=== PATIENT | male | born 1950 | race Caucasian/White ===

== ENCOUNTER → 2016-03-09 | Outpatient (CLI) | payer OTHER ==
[2015-06-27 12:37] VITALS: BP 106/72
[~2016-03-09] MED LIST: ACET325T9 PO; ASPI-482 PO; DOCU60SY6 PO; HYDR-2679 PO; LOSA25TA4 PO; MELO7.5T5 PO; METH-38 PO; MULT-208 PO; NORT25CA PO; OMEG300C PO; OMEP20CA5 PO; TRAM50TA PO
--- NOTE | 2016-03-10 01:07 | PAIN ---
DATE OF SERVICE: 03/09/2016 PROGRESS NOTE DIAGNOSES: Lumbar radiculopathy with lumbar degenerative disk disease and lumbar spinal stenosis. HISTORY OF PRESENT ILLNESS: The patient is a 65-year-old male who returns for followup status post caudal approach epidural steroid injection x 2, most recently on 01/07/2016. The patient reports he had near 100% improvement for about 2 months after the injection. The patient reports the pain is now beginning to return to a moderate extend in the low back and left lower extremity. The patient reports across the low back, into the left leg on the lateral aspect as well as the medial aspect of the thigh, posterior thigh and into the lower leg, some on the right side as well, in the posterior thigh, but mostly on the left side now. 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 The patient reports his pain as a 5-6 on a scale of 10. No new motor or sensory deficits, no new bowel or bladder incontinence, but still significant radiating pain into the lower extremities, again worse on the left side. PHYSICAL EXAMINATION: VITAL SIGNS: The patient's blood pressure is 138/82, pulse 81, respirations 18, temperature is 98.2 degrees Fahrenheit, and weight is 229 pounds. GENERAL: The patient is awake, alert, oriented, appropriate, very pleasant demeanor. HEENT: Shows normocephalic, atraumatic. Extraocular movements are intact and symmetrical. Oral cavity shows mucous membranes are moist and pink. Dentition is intact. NECK: Shows anterior throat supple without palpable lymphadenopathy noted. Swallow reflex is symmetrical. CHEST: Shows normal on inspection. Breath sounds are clear to auscultation bilaterally. HEART: Shows S1 and S2 clear. ABDOMEN: Soft, obese, nontender, and nondistended. No palpable organomegaly is noted. No rebound or guarding demonstrated. BACK: Shows spine grossly in midline. Normal appearing thoracic kyphosis and mild flattening of lumbar lordotic curvature. Well healed surgical scar is noted in the lumbar distribution. Lumbar paraspinous musculature shows symmetrical in appearance and inspection and with palpation is tender with palpation bilaterally in the middle and lower lumbar distribution, more in the left than the right, but appears roughly symmetrical. Once again no evidence of atrophy, hypertrophy, no trigger points, no radiation of pain, no tenderness over the sacrum or the sacroiliac regions with palpation. EXTREMITIES: Lower extremities show deep tendon reflexes at 1+ in the patellar and tendo calcaneus tendons, are equal. Motor exam is strong with dorsiflexion and extension and 5/5 on the right and 4/5 on the left. Quadriceps and hamstring flexion, however, is 5/5 and equal bilaterally. Peripheral pulses are 1+ posterior tibial and dorsalis pedis pulses. No peripheral edema is noted. No clubbing, no cyanosis. Straight leg raise noted to be positive on the left side at about 35-40 degrees with decreased pain with knee flexion, right side is negative. PLAN: Options were discussed with the patient. The patient's old chart was reviewed as his current medication regimen and updated. Current review of systems updated today as well. We will preauthorize the patient for caudal epidural steroid injections, a third in the series with fluoroscopic guidance. The patient would like to wait for preauthorization with his insurance provider. We will submit this first and wait approval. The patient will continue to do walking and stretching exercises as he has been doing at home and at work and continue this until returned in approximately one week for caudal approach epidural steroid injection at that time. DB MCNEAL MD DR: NAJMA/la JOB#: [id number] / [id number]
== END | disposition home or self-care (01) ==
LOC: PNCL 13:57
PROVIDERS: ATTEND Anesthesiology
DX: M51.16 Intervertebral disc disorders with radiculopathy, lumbar region (principal); M48.06 Spinal stenosis, lumbar region
CPT/HCPCS: G0463

== ENCOUNTER → 2016-03-23 | Outpatient (CLI) | payer OTHER ==
[2015-06-27 12:37] VITALS: BP 106/72
[~2016-03-23] MED LIST changes: +IOHEXOL 180 MG/ML 10 ML VIAL. ONE; +methylPREDNISolone ACETATE 40 MG/ML VIAL. ONE; +methylPREDNISolone ACETATE 80 MG/ML VIAL. ONE
--- NOTE | 2016-03-24 08:07 | PAIN ---
DATE OF SERVICE: 03/23/2016 DIAGNOSES: Lumbar radiculopathy with lumbar degenerative disk disease, and lumbar spinal stenosis. HISTORY OF PRESENT ILLNESS: The patient is a 65-year-old male, who returns for followup status post office visit and preauthorization for a third caudal epidural steroid injection. The patient has obtained this now and returns wishing to proceed. The patient reports still significant pain in the low back and left lower extremity as it was previously; stabbing, aching in the left quad mostly anteriorly and laterally, also posteriorly, and also some pain in the left ankle. The patient reports it as ranging from 0 to 8 on a scale of 10. It is currently at 2 on a scale of 10 today, but worse with standing, walking, changing positions, and climbing in and out of a vehicle. The patient reports no new motor or sensory deficits, no new bowel or bladder incontinence or other complaints. PHYSICAL EXAMINATION: VITAL SIGNS: The patient's blood pressure is 159/91, pulse 90, respirations 18, temperature 97.6 degrees Fahrenheit, weight is 231 pounds. GENERAL: The patient is awake, alert, oriented, appropriate, has a very pleasant demeanor. HEENT: Head shows normocephalic, atraumatic. Extraocular movements are intact and symmetrical. Oral cavity shows mucous membranes moist and pink. Dentition is intact. NECK: Shows anterior throat supple without palpable lymphadenopathy noted. Swallow reflex is symmetrical. Neck shows full rotational motion of cervical spine without tenderness or difficulty. CHEST: Shows normal on inspection. Breath sounds are clear to auscultation bilaterally. HEART: Shows S1 and S2 clear. ABDOMEN: Soft, obese, nontender, nondistended. No palpable organomegaly is noted. No rebound or guarding demonstrated. BACK: Shows spine grossly midline. Lumbar paraspinous muscle shows some moderate tenderness with palpation on the bilateral paraspinous muscles, but only diffusely without atrophy or hypertrophy, without radiation of pain. No asymmetry. Well-healed surgical scars again noted on inspection. The patient does show good rotation and motion of the lumbar spine both laterally, greater than 10 degrees right and left, as well as extension greater than 10 degrees, forward flexion 45 degrees without difficulty. EXTREMITIES: The patient's lower extremities showed deep tendon reflexes 1+ in the patellar and tendo calcaneus tendons are equal. Motor exam is strong with approximately 4 on a scale of 5 with left dorsiflexion, extension, and 5/5 on the right. Peripheral pulses are 1+ posterior tibial and dorsalis pedis pulses. No peripheral edema is noted in the lower extremities bilaterally. PLAN: Options were discussed with the patient. We will proceed with a third caudal-approach epidural steroid injection today with fluoroscopic guidance. Risks were again discussed including, but not limited to, bleeding, infection, possibility of epidural hematoma and subsequent neurologic compromise, dural puncture, headaches, spinal cord and/or nerve damage, side effects of steroid medication, and poor results regarding pain control. The patient understands and wished to proceed. The patient will return to the clinic in approximately 2 weeks for followup. He was counseled on return appointment, activity level, and side effects to be aware of. DIAGNOSES: Lumbar radiculopathy with lumbar degenerative disk disease and lumbar spinal stenosis. PROCEDURE: Caudal-approach epidural steroid injection using C-arm fluoroscopic-guided under sterile prep and drape with local anesthesia. MEDICATIONS AND INJECTIONS: 120 mg Depo-Medrol plus 10 mL of preservative-free normal saline and 2 mL of Isovue contrast. CONDITION AT DISCHARGE: Stable. The patient tolerated the procedure well, had no complications. DB MCNEAL MD DR: NAJMA/la JOB#: [id number] / [id number]
== END ==
LOC: PNCL 13:33
PROVIDERS: ATTEND Anesthesiology
DX: M51.16 Intervertebral disc disorders with radiculopathy, lumbar region (principal); M48.06 Spinal stenosis, lumbar region; K21.9 Gastro-esophageal reflux disease without esophagitis; M19.90 Unspecified osteoarthritis, unspecified site; I10 Essential (primary) hypertension; F32.9 Major depressive disorder, single episode, unspecified; Z72.89 Other problems related to lifestyle
CPT/HCPCS: 62323; J1030; J1040

== ENCOUNTER 2019-10-15 16:17 | Emergency (ER) | payer MEDICARE, OTHER ==
[~2019-10-15] VITALS: Ht 152.4 cm; Wt 102.7 kg
[~2019-10-15 16:17] MED LIST changes: -IOHEXOL 180 MG/ML 10 ML VIAL. ONE; -LOSA25TA4 PO; +LOSA25TA54 PO; -methylPREDNISolone ACETATE 40 MG/ML VIAL. ONE; -methylPREDNISolone ACETATE 80 MG/ML VIAL. ONE
--- NOTE | 2019-10-15 17:10 | PHYS DOC ---
Past Medical History Past Medical History: Arthritis, Depression, GERD, Hypertension Additional Past Medical Histor: NEUROPATHY Past Surgical History: Other Additional Past Surgical Histo: LUMBAR SURGERY Smoking Status: Never Smoker Alcohol Use: Sober Additional Information: PT QUIT DRINKING BUD LIGHT AND 1/2 GALLON OF ANNITA ROBBINS MONTHLY ABOUT 30 DAYS AGO. General Adult EDM: Chief Complaint: CONSTIPATION HPI: HPI: Patient is a 69 year old male who presents with patient states for the last 2 days he has not had a bowel movement. He states today he felt like he had to have a bowel movement and was sitting on the toilet bearing down to get stool out but he cannot have any stool come out. He states that he began having some rectal pain and when he wiped there was a little bit of blood on the toilet paper. He states that he had a colonoscopy a year ago and he had hemorrhoids. He states now he is just having rectal pain. Abdomen is soft and nontender. Patient rates his rectal pain at a 7 out of 10. Patient states up to about 30 days ago he was a heavy drinker with Annita Robbins and [place] [employer] beer. He states that he knows that his liver enzymes are elevated and his primary care doctor knows this also. Patient also has a history of a lumbar surgery, arthritis, hypertension, GERD. Review of Systems: Review of Systems: Constitutional: Denies fever or chills. [] Eyes: Denies change in visual acuity. [] HENT: Denies nasal congestion or sore throat. [] Respiratory: Denies cough or shortness of breath. [] Cardiovascular: Denies chest pain or edema. [] GI: Denies abdominal pain, nausea, vomiting, bloody stools or diarrhea. [] : Denies dysuria. [] Musculoskeletal: Denies back pain or joint pain. [] Integument: Denies rash. [] Neurologic: Denies headache, focal weakness or sensory changes. [] Endocrine: Denies polyuria or polydipsia. [] Lymphatic: Denies swollen glands. [] Psychiatric: Denies depression or anxiety. [] Heart Score: Risk Factors: Risk Factors: DM, Current or recent (<one month) smoker, HTN, HLP, family history of CAD, obesity. Risk Scores: Score 0 - 3: 2.5% MACE over next 6 weeks - Discharge Home Score 4 - 6: 20.3% MACE over next 6 weeks - Admit for Clinical Observation Score 7 - 10: 72.7% MACE over next 6 weeks - Early Invasive Strategies Allergies: Allergies: Allergies Coded Allergies Type Severity Reaction Last Updated Verified Penicillins Allergy Intermediate Rash 06/27/15 Yes Sulfa (Sulfonamide Antibiotics) Allergy Intermediate Rash 06/27/15 Yes shrimp Allergy Intermediate Rash 06/27/15 Yes nut - unspecified Allergy Unknown rash with Pecans 06/27/15 Yes Physical Exam: PE: Constitutional: Well developed, well nourished, no acute distress, non-toxic appearance. [] HENT: Normocephalic, atraumatic, bilateral external ears normal, oropharynx moist, no oral exudates, nose normal. [] Eyes: PERRLA, EOMI, conjunctiva normal, no discharge. [] Neck: Normal range of motion, no tenderness, supple, no stridor. [] Cardiovascular:Heart rate regular rhythm, no murmur [] Lungs & Thorax: Bilateral breath sounds clear to auscultation [] Abdomen: Bowel sounds normal, soft, no tenderness, no masses, no pulsatile masses. Hard stool in rectal vault. Anal fissure at 5:00 on rectum. [] Skin: Warm, dry, no erythema, no rash. [] Back: No tenderness, no CVA tenderness. [] Extremities: No tenderness, no cyanosis, no clubbing, ROM intact, no edema. [] Neurologic: Alert and oriented X 3, normal motor function, normal sensory function, no focal deficits noted. [] Psychologic: Affect normal, judgement normal, mood normal. [] Current Patient Data: Vital Signs: Vital Signs Date Time Temp Pulse Resp B/P (MAP) Pulse Ox O2 Delivery O2 Flow Rate FiO2 10/15/19 16:31 98.2 85 16 153/81 (105) 97 Room Air 98.2 EKG: EKG: [] Radiology/Procedures: Radiology/Procedures: [] Impression: [facility] [address] [place] [address] IMAGING REPORT Signed PATIENT: LOREN COURTNEYOUNT: [id number] : 1950 LOCATION: ER AGE: 69 SEX: M EXAM STATUS: PRE ER ORD. PHYSICIAN: CHRISTINA BUITRAGO APRN REASON: CONSTIPATION, ABD PAIN PROCEDURE: ACUTE ABDOMEN SERIES ACUTE ABDOMEN SERIES Indication: Constipation, abdominal pain Date of service:10/15/2019 .Comparison: None available Procedure: PA chest and upright and supine abdomen views are obtained. Findings: Chest: Cardiac size and pulmonary vessels are normal. Pneumonia, pneumothorax or pleural effusion are not present. Bones are essentially normal Abdomen: No evidence of free air is present. Gas pattern is normal . Spondylotic changes involving the lumbar spine Impression: Normal Chest . Normal abdomen without obstruction, ileus or free air . If indicated, CT scan of the abdomen would be useful for further evaluation. Electronically signed by: Cristy Alaniz MD (10/15/2019 5:53 PM) [facility] DICTATED and SIGNED BY: CRISTY ALANIZ MD DATE: 10/15/19 1753 [facility] [address] [place], [place] [id number] IMAGING REPORT Signed PATIENT: LOREN COURTNEYOUNT: [id number] : 1950 LOCATION: ER AGE: 69 SEX: M EXAM STATUS: REG ER ORD. PHYSICIAN: CHRISTINA BUITRAGO APRN REASON: positive fecal occult stool OMNI 300, 60 ML IV PROCEDURE: CT ABD PELV W/ IV CONTRST ONLY Exam: CT of abdomen and pelvis with contrast INDICATION: Blood in stool. TECHNIQUE: Sequential axial images through the abdomen and pelvis obtained following the administration of 60 mL of Omni 300 IV contrast. Sagittal and coronal reformatted images were reconstructed from the axial data and reviewed. Comparisons: None FINDINGS: Heart size is normal. No pericardial visualized lung bases are clear. No pleural effusion Liver, spleen, pancreas, gallbladder and adrenals are unremarkable. No perinephric inflammation or hydronephrosis. No renal or ureteral calculi are identified. Bladder is distended and appears thin-walled. Prostate is not enlarged. Mild wall thickening at the sigmoid colon. There is a moderate amount stool noted throughout the colon. Appendix is normal. No free intra-abdominal air or fluid. No obstruction. Abdominal aorta has a normal course and caliber. Abdominal vasculature is patent. No enlarged abdominal lymph nodes are identified. No suspicious osseous lesions or acute fractures. IMPRESSION: Mild wall thickening at the sigmoid colon, may relate to focal colitis. Colonoscopy posttreatment to ensure no underlying lesion is recommended. Exposure: One or more of the following in the visualized dose reduction techniques were utilized for this examination: 1. Automated exposure control 2. Adjustment of the MA and/or KV according to patient size 3. Use of iterative of reconstructive technique Electronically signed by: Karen Costa MD (10/15/2019 7:41 PM) [id number] DICTATED and SIGNED BY: KAREN COSTA MD DATE: 10/15/191940 Course & Med Decision Making: Course & Med Decision Making Pertinent Labs and Imaging studies reviewed. (See chart for details) A rectal exam is done and there are no hemorrhoids seen but it looks to have a fissure at approximately 5:00 on the rectum. There is no masses felt in the rectal vault. There is a large hard ball of stool that was felt at the tip of my finger but I cannot reach it to disimpact. Fecal occult stool sent. Alert and oriented x4. Ambulatory with a steady gait. Speaks in full clear sentences. Skin pink warm and dry. Patient denies any timmy blood or filling the toilet with water. He only saw it when he wiped on the toilet paper. Hemodynamically stable. Ct shows possible colitis. Patient had a large bowel movement after the enema was given. He states he is feeling much better. There was no blood in the stool. Patient continues to deny any abdominal pain, nausea, or vomiting. Patient is stable and in no distress. [] Dragon Disclaimer: Dragon Disclaimer: This electronic medical record was generated, in whole or in part, using a voice recognition dictation system. Departure Departure Impression: Primary Impression: Colitis Additional Impression: Constipation Qualified Codes: K59.00 - Constipation, unspecified Disposition: HOME, SELF-CARE Condition: STABLE Referrals: KARLA DALTON MD (PCP) MORIS GIBSON MD Patient Instructions: Colitis, Constipation, Adult Additional Instructions: Follow up with primary care provider and GI doctor referred you to. Drink plenty of fluids. Take medications as prescribed and with food. If your symptoms worsen return to the emergency room. Scripts Ondansetron (ONDANSETRON ODT) 4 Mg Tab.rapdis 1 TAB PO PRN Q6-8HRS, #16 TAB Prov: CHRISTINA BUITRAGO APRN 10/15/19 Ciprofloxacin Hcl (CIPRO) 500 Mg Tablet 1 TAB PO BID for 7 Days, #14 TAB 0 Refills Prov: CHRISTINA BUITRAGO APRN 10/15/19 Metronidazole (FLAGYL) 500 Mg Tablet 1 TAB PO BID, #14 TAB Prov: CHRISTINA BUITRAGO APRN 10/15/19 Justicifation of Admission Dx: Justifications for Admission: Justification of Admission Dx: N/A CHRISTINA BUITRAGO APRN Oct 15, 2019 17:10
[2019-10-15 17:15] LABS: FECAL OB PT POSITIVE (NEG)
[2019-10-15 17:53] LABS: BASO % 1 % (0-3); EOS # 0.2 x10^3/uL (0.0-0.7); EOS % 3 % (0-3); HEMOGLOBIN 12.8 g/dL (13.0-17.5); LYMPH # 1.7 x10^3/uL (1.0-4.8); LYMPH % 27 % (24-48); MEAN CORPUSCULAR HEMOGLOBIN 31 pg (25-35); MEAN CORPUSCULAR HGB CONC 34 g/dL (31-37); MEAN CORPUSCULAR VOLUME 93 fL (79-100); MONO # 0.9 x10^3/uL (0.0-1.1); MONO % 15 % (0-9); NEUT # 3.4 x10^3/uL (1.8-7.7); NEUT % 54 % (31-73); PLATELET COUNT 257 x10^3/uL (140-400); RED CELL DISTRIBUTION WIDTH 12.7 % (11.5-14.5); WHITE BLOOD COUNT 6.2 x10^3/uL (4.0-11.0)
--- NOTE | 2019-10-15 17:55 | RAD ---
ACUTE ABDOMEN SERIES Indication: Constipation, abdominal pain Date of service:10/15/2019 .Comparison: None available Procedure: PA chest and upright and supine abdomen views are obtained. Findings: Chest: Cardiac size and pulmonary vessels are normal. Pneumonia, pneumothorax or pleural effusion are not present. Bones are essentially normal Abdomen: No evidence of free air is present. Gas pattern is normal . Spondylotic changes involving the lumbar spine Impression: Normal Chest . Normal abdomen without obstruction, ileus or free air . If indicated, CT scan of the abdomen would be useful for further evaluation. Electronically signed by: Cristy Alaniz MD (10/15/2019 5:53 PM) [facility]
[2019-10-15 18:03] LABS: CALCIUM 8.4 mg/dL (8.5-10.1); CREATININE 1.3 mg/dL (0.7-1.3); GFR 54.6; POTASSIUM 4.4 mmol/L (3.5-5.1)
[2019-10-15] MEDS ORDERED: SODIUM PHOSPHATES 19/7GM 133 ML ENEMA. PR ONE (18:15)
[2019-10-15 18:18] LABS: ALBUMIN 3.3 g/dL (3.4-5.0); ALBUMIN/GLOBULIN RATIO 0.9 (1.0-1.7); TOTAL BILIRUBIN 0.2 mg/dL (0.2-1.0)
[2019-10-15] MEDS ORDERED: IV NORMAL SALINE 1000ML BAG 1,000 ML IV ONE (18:45)
[2019-10-15] MEDS ORDERED: IOHEXOL 300 MG/ML 100ML VIAL. IV ONE (18:45)
[2019-10-15] MEDS ORDERED: CONTRAST GIVEN. MC PRN (19:00)
[2019-10-15] MEDS ORDERED: ONDANSETRON PF 4 MG/2 ML VIAL. IVP ONE (19:30)
--- NOTE | 2019-10-15 19:43 | RAD ---
Exam: CT of abdomen and pelvis with contrast INDICATION: Blood in stool. TECHNIQUE: Sequential axial images through the abdomen and pelvis obtained following the administration of 60 mL of Omni 300 IV contrast. Sagittal and coronal reformatted images were reconstructed from the axial data and reviewed. Comparisons: None FINDINGS: Heart size is normal. No pericardial visualized lung bases are clear. No pleural effusion Liver, spleen, pancreas, gallbladder and adrenals are unremarkable. No perinephric inflammation or hydronephrosis. No renal or ureteral calculi are identified. Bladder is distended and appears thin-walled. Prostate is not enlarged. Mild wall thickening at the sigmoid colon. There is a moderate amount stool noted throughout the colon. Appendix is normal. No free intra-abdominal air or fluid. No obstruction. Abdominal aorta has a normal course and caliber. Abdominal vasculature is patent. No enlarged abdominal lymph nodes are identified. No suspicious osseous lesions or acute fractures. IMPRESSION: Mild wall thickening at the sigmoid colon, may relate to focal colitis. Colonoscopy posttreatment to ensure no underlying lesion is recommended. Exposure: One or more of the following in the visualized dose reduction techniques were utilized for this examination: 1. Automated exposure control 2. Adjustment of the MA and/or KV according to patient size 3. Use of iterative of reconstructive technique Electronically signed by: Karen Amaya MD (10/15/2019 7:41 PM) [id number]
[2019-10-15] MEDS ORDERED: CIPR500T94 PO (20:26)
[2019-10-15] MEDS ORDERED: METR500T PO (20:26)
[2019-10-15] MEDS ORDERED: ONDA4TAB12 PO (20:26)
[2019-10-15 20:30] VITALS: BP 136/64
== END 2019-10-15 20:35 | disposition home or self-care (01) ==
LOC: ER 16:17
DX: K52.9 Noninfective gastroenteritis and colitis, unspecified (principal); K59.00 Constipation, unspecified; M19.90 Unspecified osteoarthritis, unspecified site; K21.9 Gastro-esophageal reflux disease without esophagitis; F32.9 Major depressive disorder, single episode, unspecified; I10 Essential (primary) hypertension; Z98.890 Other specified postprocedural states; Z88.0 Allergy status to penicillin; Z88.2 Allergy status to sulfonamides; Z91.018 Allergy to other foods; Z91.013 Allergy to seafood
CPT/HCPCS: 36415; 74022; 74177; 80053; 82274; 83690; 85025; 96361; 96374; 99285; G0480; J2405; J7030; Q9967

== ENCOUNTER → 2020-02-02 | Outpatient (CLI) | payer MEDICARE ==
[~2020-02-02] MED LIST changes: +ATOR40TA59 PO; +CIPR500T94 PO; +CITA20TA6 PO; +GABA600T7 PO; +HYDR12.58 PO; +IBUP200T77 PO; +MELO15TA23 PO; +METR500T PO; +ONDA4TAB12 PO
== END ==
LOC: LAB 13:25
PROVIDERS: ATTEND Surgery
DX: Z01.812 Encounter for preprocedural laboratory examination (principal); Z20.828 Contact with and (suspected) exposure to other viral communicable diseases
CPT/HCPCS: U0003

== ENCOUNTER → 2020-02-06 | Day surgery (SDC) | payer MEDICARE ==
[~2020-02-06] MED LIST changes: +LIDOCAINE 1%/EPI 1:100,000 20 ML VIAL. INJ ONE
--- NOTE | 2020-02-06 13:16 | PDOC1 ---
History and Physical Date of Admission Date of Admission DATE: 02/06/20 TIME: 13:14 Identification/Chief Complaint Chief Complaint Left elbow mass Source Source: Chart review, Patient History of Present Illness History of Present Illness 69-year-old male with complaints of a skin lesion on his left elbow is been present for a number years times it is painful or sore Past Medical History Cardiovascular: HTN, Hyperlipidemia Pulmonary: No pertinent hx GI: GERD Heme/Onc: No pertinent hx Hepatobiliary: No pertinent hx Psych: No pertinent hx Musculoskeletal: low back pain Rheumatologic: No pertinent hx Infectious disease: No pertinent hx ENT: No pertinent hx Renal/: No pertinent hx Endocrine: No pertinent hx Dermatology: No pertinent hx Past Surgical History Past Surgical History: Other (Colonoscopy) Family History Family History: No Significant Social History Smoke: No ALCOHOL: occassional Drugs: None Current Medications Current Medications Current Medications Lidocaine/ Epinephrine (LIDOCAINE 1%-EPI 1:100,000 Multi-Dose) 20 ml 1X ONCE INJ ; Start 02/06/20 at 12:15; Stop 02/06/20 at 12:16; Status DC Lidocaine/ Epinephrine (LIDOCAINE 1%-EPI 1:100,000 Multi-Dose) 20 ml STK-MED ONCE INJ Last administered on 02/06/20at 12:51; Start 02/06/20 at 12:51; Stop 02/06/20 at 12:54; Status DC Active Scripts Active Reported Ibuprofen 200 Mg Tablet 200 Mg PO PRN Q6HRS PRN Atorvastatin Calcium 40 Mg Tablet 40 Mg PO DAILY Hydrochlorothiazide Tablet (Hydrochlorothiazide) 12.5 Mg Tablet 12.5 Mg PO DAILY Gabapentin 600 Mg Tablet 600 Mg PO TID Citalopram Hbr (Citalopram Hydrobromide) 20 Mg Tablet 20 Mg PO DAILY Meloxicam 15 Mg Tablet 15 Mg PO DAILY Prilosec (Omeprazole) 20 Mg Capsule.dr 1 Cap PO DAILY Losartan Potassium (Losartan Potassium) 25 Mg Tablet 100 Mg PO DAILY Tylenol (Acetaminophen) 325 Mg Tablet 1 Tab PO PRN Q4HRS Multi-Day Vitamins (Multivitamin) 1 Each Tablet 1 Tab PO DAILY Aspir 81 (Aspirin) 81 Mg Tablet. 1 Tab PO DAILY Nortriptyline Hcl 25 Mg Capsule 3 Cap PO QHS Allergies Allergies: Coded Allergies: Penicillins (Verified Allergy, Intermediate, Rash, 02/06/20) Sulfa (Sulfonamide Antibiotics) (Verified Allergy, Intermediate, Rash, 02/06/20) shrimp (Verified Allergy, Intermediate, Rash, 02/06/20) lisinopril (Verified Allergy, Mild, COUGH, 02/06/20) nut - unspecified (Verified Allergy, Unknown, rash with Pecans, 02/06/20) ROS Musculoskeletal: Yes Other (Left elbow pain) Physical Exam General: Alert, Oriented X3, Cooperative, mild distress HEENT: Atraumatic, EOMI Lungs: Clear to auscultation, Normal air movement Cardiovascular: S1, S2 Abdomen: Normal bowel sounds, Soft, No tenderness Extremities: Other (Left elbow skin lesion mildly tender to palpation) VTE Prophylaxis Ordered VTE Prophylaxis Devices: No VTE Pharmacological Prophylaxi: No Assessment/Plan Assessment/Plan Left elbow skin lesion plan excision Justifications for Admission Other Justification JONE MUJICA MD Feb 06, 2020 13:16
--- NOTE | 2020-02-06 13:18 | PDOC4 ---
Operative Note Operative Note Date: February 052019 at 1317 Preoperative diagnosis: Left elbow skin lesion Postoperative diagnosis: Same Procedure: Excision of skin lesion Surgeon: Leonel Specimen: Left elbow skin mass Dictation: Patient is a 69-year-old gentleman with a skin lesion on his left elbow procedure of excision was explained to the patient detail risk benefits were also discussed including bleeding infection alternatives to this procedure also discussed with the patient who seemed to understand and gave both verbal and written consent to have the procedure performed. Patient was taken to the minors room placed in the supine position his left elbow was prepped and draped in usual sterile fashion using ChloraPrep. Area around the skin lesion was injected with quarter percent Marcaine with epinephrine an elliptical incision was made with 15 blade scalpel excising the skin lesion in the subcutaneous tissue. Wound was then closed in 2 layers the deep layer running 3-0 Vicryl and the skin was reapproximated for subcuticular Monocryl Mastisol Steri-Strips and island dressings were applied. Patient tolerated procedure well was discharged home in stable condition all sponge instrument needle counts listed as correct estimated blood loss less than 5 mL JONE MUJICA MD Feb 06, 2020 13:18
--- NOTE | 2020-02-06 13:20 | DISCH ---
DISCHARGE INSTRUCTIONS Condition on Discharge Condition on Discharge: Stable Activity After Discharge Activity Instructions for Disc: Activity as tolerated Diet after Discharge Diet after Discharge: Regular Additional Diet Restrictions: resume home diet Wound Incision Care Other wound/incision instructi: Arlen shower in 24 hours Contacting the after DC Call your doctor for: If your condition worsens Follow-Up Follow up with: Dr. Mujica in 2 weeks JONE MUJICA MD Feb 06, 2020 13:20
--- NOTE | 2020-02-08 23:06 | PATHOLOGY ---
[facility] Accession Number: [id number] . 01 Material submitted: . elbow - LEFT ELBOW MASS. Modifiers: left . 01 Clinical history: . LEFT ELBOW SKIN LESION . 02 Diagnosis: Skin and subcutaneous tissue, "L elbow mass", excision: - Skin and subcutis with hypertrophic scar, overlying reactive epidermal hyperplasia/hyperkeratosis and proliferating reactive peripheral nerves/neuroma. (See comment). (CLW:jay; 02/08/2020) MBR 02/08/2020 1643 Local . 02 Comment: No malignancy is seen. Clinical correlation is recommended. The case is co-reviewed with Dr. Isamar Zhang. (CLW:jay; 02/08/2020) . 02 Electronically signed: . Robyn Renae MD, Pathologist NPI- [id number] . 01 Gross description: . The specimen is received in formalin labeled "Hardister, Orbie, L elbow mass" and consists of an unoriented skin ellipse measuring 3.4 x 1.1 x 0.9 cm. Present on the surface is a white effaced area/scar/lesion measuring 1.6 x 0.9 cm that is 0.1 cm from the nearest peripheral edge. The margins are inked black. It is serially sectioned and entirely submitted in A1-A4 with tips in A4. (ARASHY; 02/07/2020) SYU/SYU 02/07/2020 1312 Local . 02 Pathologist provided ICD-10: L91.0, L85.8 . 02 CPT . 449402 Specimen Comment: A courtesy copy of this report has been sent to [phone] Specimen Comment: [phone], Specimen Comment: Report sent to , / Performed at: 01 [facility] [address], [place] [id number] MD Erickson Gordon MD Phone: [phone] Performed at: 02 [facility] [address], [place] [id number] MD Artie Del Castillo MD Phone: [phone]
== END | disposition home or self-care (01) ==
LOC: SURG 11:56
PROVIDERS: ATTEND Surgery
DX: L91.0 Hypertrophic scar (principal); L85.8 Other specified epidermal thickening
CPT/HCPCS: 11404; 88305; J3490; 11406